=== PATIENT | female | born 1990 | race Hispanic/Latino ===

== ENCOUNTER 2016-08-22 11:08 | Outpatient (CLI) | payer MEDICAID ==
[2016-08-22] MEDS ORDERED: LACTATED RINGERS 500 ML IV ONE (12:18)
[2016-08-22 14:03] VITALS: BP 121/68
== END 2016-08-22 14:08 | disposition home or self-care (01) ==
LOC: TRG 11:08 → LD 11:17 → TRG 14:08
PROVIDERS: ATTEND Obstetrics & Gynecology
DX: O47.03 False labor before 37 completed weeks of gestation, third trimester (principal); Z3A.36 36 weeks gestation of pregnancy
CPT/HCPCS: 59025

== ENCOUNTER 2016-09-04 19:47 | Outpatient (CLI) | payer MEDICAID ==
[2016-09-04 20:58] LABS: Hematocrit 36.1 % (30.3-42.9); Hemoglobin 11.9 gm/dl (10.1-14.3); Mean Corpuscular HGB Conc 33 % (30-34); Mean Corpuscular Hemoglobin 28 pg (28-32); Mean Corpuscular Volume 85 fl (79-97); Platelet Count 256 K/mm3 (140-440); Red Blood Count 4.22 M/mm3 (3.65-5.03); Red Cell Distribution Width 14.7 % (13.2-15.2); White Blood Count 16.8 K/mm3 (4.5-11.0)
[2016-09-04 21:07] LABS: Bacteria,Urine 1+ /HPF (Negative); Bilirubin,Urine NEG (Negative); Blood,Urine NEG (Negative); Ketones,Urine TR mg/dL (Negative); Leukocyte Esterase,Urine NEG (Negative); Mucus,Urine FEW /HPF; Nitrite,Urine NEG (Negative); Urobilinogen,Urine < 2.0 mg/dL (<2.0)
[2016-09-04 21:21] VITALS: BP 119/58
[2016-09-04 21:22] LABS: Alanine Aminotransferase 10 units/L (7-56); Lactate Dehydrogenase 174 units/L (91-180); Uric Acid 4.5 mg/dL (3.5-7.6)
== END 2016-09-04 22:00 | disposition home or self-care (01) ==
LOC: TRG 19:47
PROVIDERS: ATTEND Obstetrics & Gynecology
DX: Z34.93 Encounter for supervision of normal pregnancy, unspecified, third trimester (principal); Z87.891 Personal history of nicotine dependence; Z3A.38 38 weeks gestation of pregnancy
CPT/HCPCS: 36415; 81001; 82565; 83615; 84450; 84460; 84550; 85027